=== PATIENT | male | born 2000 | race Native Hawaiian/Other Pacific Islander ===

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

== ENCOUNTER 2020-03-03 07:53 | Emergency (ER) | payer OTHER ==
[~2020-03-03] VITALS: Ht 172.7 cm; Wt 127.0 kg
[2020-03-03 08:49] VITALS: BP 157/107; TEMP 99.1
== END 2020-03-03 08:49 | disposition home or self-care (01) ==
LOC: ED 07:53
DX: H65.192 Other acute nonsuppurative otitis media, left ear (principal); F17.290 Nicotine dependence, other tobacco product, uncomplicated
CPT/HCPCS: 99283

== ENCOUNTER 2021-02-19 15:06 | Emergency (ER) | payer OTHER ==
[~2021-02-19] VITALS: Ht 172.7 cm; Wt 127.0 kg
[2021-02-19 15:23] VITALS: BP 150/88; TEMP 97.4
== END 2021-02-19 16:15 | disposition home or self-care (01) ==
LOC: ED 15:06
DX: S53.491A Other sprain of right elbow, initial encounter (principal); S50.01XA Contusion of right elbow, initial encounter; V86.59XA Driver of other special all-terrain or other off-road motor vehicle injured in nontraffic accident, initial encounter; Y92.89 Other specified places as the place of occurrence of the external cause; Y99.8 Other external cause status
CPT/HCPCS: 99282; 99283